=== PATIENT | male | born 1955 | race Caucasian/White ===

== ENCOUNTER 2017-08-12 05:05 | Observation (INO) | payer BC, OTHER ==
[~2017-08-12] VITALS: Ht 185.4 cm; Wt 120.5 kg
[~2017-08-12 05:05] MED LIST: AMITRIPTYLINE H50 MG PO; AMLODIPINE-BEN1 EAC2 PO; ANALGESIC325 M1 PO; ASPIR 8181 M1 PO; ASPIRIN BUFFER325 MG PO; ATENOLOL25 M1 PO; BACLOFEN10 MG PO; BYSTOLIC5 MG PO; CEFTIN500 MG PO; CENTRUM SILVER1 EAC3 PO; CENTRUM SILVER1 EACH PO; CLONAZEPAM1 MG PO; CRESTOR40 MG PO; Colace PO; ELAVIL50 MG PO; Ecotrin PO; Elavil PO; FEXOFENADINE H180 M1 PO; FLOMAX0.4 M1 PO; FLOMAX0.4 MG PO; GABAPENTIN300 MG PO; HYDROCODON-ACE1 EACH PO; LOTREL 10/41 CAPSULE PO; LOTREL 5/101 CAPSULE PO; LOTREL 5/201 CAPSUL1 PO; Lioresal PO; MYSOLINE50 M1 PO; NEURONTIN300 MG PO; OPANA ER10 MG PO; OPANA ER20 MG PO; OPANA IR10 MG PO; Opana ER PO; PLAVIX75 MG PO; PRIMIDONE50 MG PO; SINGULAIR10 MG PO; Singulair PO; TENORMIN25 MG PO; THERAGRAN1 TABLET PO; Tenormin PO; VICODIN,LORT1 TABLET PO; VYTORIN 10-801 EACH PO; WELCHOL625 MG PO; ZEGERID OTC 201 EACH PO; ZEGERID20 MG PO; ZOLOFT100 M1 PO; ZOLOFT100 MG PO; Zoloft PO
[2017-08-12 06:01] LABS: HEMATOCRIT 37.6 % (38.0-50.0); MCH 27.7 PG (29.0-34.0); MCHC 33.2 G/DL (30.0-36.0); MCV 83.2 FL (86-99); MEAN PLAT.VOLUME 10.7 uM^3 (9.0-12.4); PLATELET COUNT 154 K/uL (156-360); RBC DIS.WIDTH-SD 42.2 % (39-53); RED BLOOD COUNT 4.52 M/uL (4.00-5.50); WHITE BLOOD COUNT 7.9 K/uL (4.1-10.2)
[2017-08-12 06:10] LABS: CHLORIDE 105 mEq/L (99-109); POTASSIUM 4.1 mEq/L (3.7-5.4); SODIUM 137 mEq/L (136-147)
[2017-08-12 06:11] LABS: GLUCOSE 133 mg/dL (70-99)
[2017-08-12 06:13] LABS: ANION GAP 11 MEQ/L (2-14)
[2017-08-12 06:15] LABS: GFR ESTIMATE (CALCULATED) > 59 mL/min/
[2017-08-12 06:16] LABS: UREA NITROGEN (BUN) 12 mg/dL (9-23)
[2017-08-12 06:23] LABS: TROP-I INTERPRETATION NEGATIVE; TROPONIN-I < 0.01 ng/mL (0.0-0.30)
[2017-08-12 09:25] VITALS: BP 142/85
[2017-08-12 12:52] VITALS: BP 138/82
[2017-08-12 13:01] LABS: TROP-I INTERPRETATION NEGATIVE; TROPONIN-I < 0.01 ng/mL (0.0-0.30)
[2017-08-12] MEDS ORDERED: BYSTOLIC10 MG PO (14:11)
[2017-08-12] MEDS ORDERED: WELCHOL625 MG PO (14:15)
[2017-08-12] MEDS ORDERED: GABAPENTIN400 MG PO (14:20)
[2017-08-12] MEDS ORDERED: BUPROPION HCL100 MG PO (14:25)
[2017-08-12] MEDS ORDERED: OMEPRAZOLE40 M1 PO (14:26)
[2017-08-12] MEDS ORDERED: CLARITIN10 M3 PO (14:27)
[2017-08-12] MEDS ORDERED: LEVOTHYROXINE25 MCG PO (14:28)
[2017-08-12] MEDS ORDERED: QNASL8.7 GM BOTH NARES (14:29)
[2017-08-12] MEDS ORDERED: LINZESS290 MCG PO (14:29)
[2017-08-12] MEDS ORDERED: PERCOCET 10/1 TABLET PO (14:30)
[2017-08-12 18:51] LABS: TROP-I INTERPRETATION NEGATIVE; TROPONIN-I < 0.01 ng/mL (0.0-0.30)
[2017-08-12 20:00] VITALS: BP 150/92
== END 2017-08-12 22:13 | disposition home or self-care (01) ==
LOC: EME 05:05 → EDOF 08:21 → ENRESERV 08:22 → 5WEST 08:53
PROVIDERS: Internal Medicine
DX: R07.9 Chest pain, unspecified (principal); I25.10 Atherosclerotic heart disease of native coronary artery without angina pectoris; Z95.5 Presence of coronary angioplasty implant and graft; I49.1 Atrial premature depolarization; I10 Essential (primary) hypertension; J45.909 Unspecified asthma, uncomplicated; R06.09 Other forms of dyspnea; G89.29 Other chronic pain; M54.5 Low back pain; M54.2 Cervicalgia; Z87.442 Personal history of urinary calculi; F32.9 Major depressive disorder, single episode, unspecified; Z86.73 Personal history of transient ischemic attack (TIA), and cerebral infarction without residual deficits; K21.9 Gastro-esophageal reflux disease without esophagitis; Z98.1 Arthrodesis status; Z79.891 Long term (current) use of opiate analgesic; E78.5 Hyperlipidemia, unspecified; Z82.49 Family history of ischemic heart disease and other diseases of the circulatory system
CPT/HCPCS: 71020; 80048; 84484; 85027; 93005; 99281; 99284; G0378; J1650; J2270